=== PATIENT | female | born 1985 | race Caucasian/White ===

== ENCOUNTER 2020-11-12 20:16 | Emergency (ER) | payer OTHER ==
[2020-11-12 21:02] LABS: HEMOGLOBIN 14.6 gm/dl (12.3-15.3); RED BLOOD COUNT 4.85 M/UL (4.00-5.10); WHITE BLOOD COUNT 10.1 K/UL (4.5-11.0)
[2020-11-12 21:23] LABS: BUN/CREATININE RATIO 10 (0-10)
[2020-11-12] MEDS ORDERED: MACROBID 100 M100 MG PO (21:53)
[2020-11-12] MEDS ORDERED: ZYRTEC10 M3 PO (21:54)
== END 2020-11-12 22:45 | disposition home or self-care (01) ==
LOC: EDBD 20:16 → ER1 20:16
PROVIDERS: Nurse Practitioner
DX: N39.0 Urinary tract infection, site not specified (principal); H65.02 Acute serous otitis media, left ear
CPT/HCPCS: 80053; 81001; 83605; 85025; 87040; 93005; 99283; J7030